=== PATIENT | female | born 1955 | race Caucasian/White ===

== ENCOUNTER → 2016-09-02 | Outpatient (CLI) | payer BC ==
--- NOTE | 2016-09-03 08:59 | Diagnostic Imaging Report ---
EXAM: Bilateral Digital Screening Mammography with computer aided detection system (CAD). DATE: September 02, 2016. COMPARISON: August 06, 2015. INDICATION: Breast cancer screening. FINDINGS: The breasts are nearly entirely fatty. There are no suspicious findings in either breast. IMPRESSION: No mammographic evidence of malignancy. Recommend annual screening mammography and clinical breast exam. ACR BI-RADS Category 2: Benign findings. Result letter will be mailed to the patient. Note: At least 10% of breast cancer is not imaged by mammography. Dictated by: Dictated on workstation # [id number]
== END ==
LOC: RAD 10:40
PROVIDERS: ATTEND Family Medicine
DX: Z12.31 Encounter for screening mammogram for malignant neoplasm of breast (principal)